=== PATIENT | female | born 1965 | race Caucasian/White ===

== ENCOUNTER → 2016-03-25 13:56 | Outpatient (CLI) | payer MEDICAID ==
[2015-07-18 10:54] VITALS: BMI 37.6
[~2016-03-25 13:56] MED LIST: ADDERALL 10 MG10 MG; ADDERALL 10 MG10 MG PO; ARMOUR THYROID30 MG PO; CELEBREX200 MG PO; CYCLOBENZAPRINE10 MG PO; CYMBALTA60 MG PO; FISH OIL 1,0001 CA1 PO; GLUCOPHAGE1000 MG PO; HYDROCHLOROTH12.5 M1 PO; HYDROCODONE-APA1 TAB PO; K-DUR20 MEQ PO; LIPITOR20 MG PO; LIPITOR40 MG PO; LISINOPRIL5 MG PO; LOVAZA1 G PO; MEVACOR40 MG PO; MOBIC7.5 MG PO; NEUPRO; NEUPRO1 EACH TOPICAL; NEURONTIN 300300 MG PO; NORCO 10/325 TA1 TA1 PO; NORCO 7.5/325 T1 TA1 PO; PERCOCET 10/3251 TA1 PO; POTASSIUM CHLO20 MEQ PO; PRINIVIL10 MG PO; PROMETRIUM200 MG PO; PROZAC40 MG PO; ULTRAM50 MG PO; VICTOZA0.6 MG/0.1; VICTOZA0.6 MG/0.1 SQ; VITAMIN D3400 UNI1 PO; VITAMIN E100 UNIT PO; VYVANSE40 MG PO; XANAX0.5 MG PO; ZESTRIL10 MG PO
== END | disposition home or self-care (01) ==
LOC: D.MRI 13:56
DX: M25.561 Pain in right knee (principal)

== ENCOUNTER → 2016-05-26 09:07 | Outpatient (CLI) | payer MEDICAID ==
[2015-07-18 10:54] VITALS: BMI 37.6
[~2016-05-26 09:07] MED LIST changes: -LIPITOR20 MG PO; -VYVANSE40 MG PO
== END | disposition home or self-care (01) ==
LOC: D.MRI 05-20 16:00
DX: S43.432A Superior glenoid labrum lesion of left shoulder, initial encounter (principal); X58.XXXA Exposure to other specified factors, initial encounter; Y93.89 Activity, other specified; Y92.89 Other specified places as the place of occurrence of the external cause

== ENCOUNTER 2016-06-11 05:27 | Day surgery (SDC) | payer MEDICAID ==
[2016-06-10 08:56] LABS: HEMATOCRIT 41.3 % (36.0-48.0); HEMOGLOBIN 13.8 g/dL (12-16); MCH 29.2 pg (26.0-34.0); MCHC 33.4 g/dL (31.0-37.0); MCV 87.3 fL (80.0-100.0); MEAN PLATELET VOLUME 9.4 fL (7.4-10.4); RBC 4.73 10x6/uL (4.00-5.40); RDW 12.8 % (11.5-14.5); WBC 7.1 10x3/uL (4.8-10.8)
[2016-06-10 09:04] LABS: ANION GAP 13.6 mmol/L (8-16); CALCIUM 9.6 mg/dL (8.5-10.1); CARBON DIOXIDE 26.5 mmol/L (21.0-32.0); CREATININE - SERUM 1.1 mg/dL (0.6-1.3); POTASSIUM - SERUM 4.1 mmol/L (3.5-5.1)
[~2016-06-11 05:27] MED LIST changes: +LIPITOR20 MG PO; +VYVANSE40 MG PO
[2016-06-11 07:36] LABS: HCG URINE NEGATIVE (NEGATIVE)
[2016-06-11] MEDS ORDERED: PERCOCET 10/3251 TA1 PO (10:09)
== END 2016-06-11 12:20 | disposition home or self-care (01) ==
LOC: D.OPS 05:27
PROVIDERS: Anesthesiology; Orthopaedic Surgery
DX: M75.122 Complete rotator cuff tear or rupture of left shoulder, not specified as traumatic (principal); M22.2X1 Patellofemoral disorders, right knee; M22.2X2 Patellofemoral disorders, left knee; M25.561 Pain in right knee; M25.562 Pain in left knee; S43.432A Superior glenoid labrum lesion of left shoulder, initial encounter; I10 Essential (primary) hypertension; Z01.812 Encounter for preprocedural laboratory examination

== ENCOUNTER → 2016-07-02 13:04 | Outpatient (CLI) | payer MEDICAID ==
[2016-06-11 07:38] VITALS: BMI 35.3
== END | disposition home or self-care (01) ==
LOC: D.MRI 13:04
DX: M25.511 Pain in right shoulder (principal)

== ENCOUNTER → 2016-09-07 08:35 | Outpatient (CLI) | payer MEDICAID ==
[2016-06-11 07:38] VITALS: BMI 35.3
== END | disposition home or self-care (01) ==
LOC: D.MRI 08:35
DX: M54.12 Radiculopathy, cervical region (principal)

== ENCOUNTER → 2018-05-31 09:03 | Outpatient (CLI) | payer OTHER, MEDICAID ==
[~2018-05-31 09:03] MED LIST changes: +ALBUTEROL SULF8.5 GM INH; +DILAUDID4 MG PO; +OMEGA-3100 MG PO; +PROZAC20 MG PO; +VITAMIN D10000 UNI1 PO
== END | disposition home or self-care (01) ==
LOC: D.RAD 09:03
DX: S43.492A Other sprain of left shoulder joint, initial encounter (principal)

== ENCOUNTER 2018-06-11 17:09 | Emergency (ER) | payer OTHER, MEDICAID ==
[~2018-06-11 17:09] MED LIST changes: -ALBUTEROL SULF8.5 GM INH; -DILAUDID4 MG PO; -OMEGA-3100 MG PO; -PROZAC20 MG PO; -VITAMIN D10000 UNI1 PO
[2018-06-11 17:12] VITALS: BMI 38.0
[2018-06-11] MEDS ORDERED: LIPITOR20 MG PO (17:15)
[2018-06-11] MEDS ORDERED: ALBUTEROL SULF8.5 GM INH (17:16)
[2018-06-11 18:02] LABS: APTT 28.8 SECONDS (22.8-39.4); INR 1.24 (0.85-1.17)
[2018-06-11 18:03] LABS: BASOPHILS 0.4 % (0-2); EOSINOPHILS 0 % (0-7); HEMATOCRIT 39.3 % (36.0-48.0); HEMOGLOBIN 13.7 g/dL (12-16); IMMATURE GRANULOCYTES 0.3 % (0-5); LYMPHOCYTES 11.1 % (15-50); MCH 29.3 pg (26.0-34.0); MCHC 34.9 g/dL (31.0-37.0); MEAN PLATELET VOLUME 9.6 fL (7.4-10.4); MONOCYTES 6.7 % (2-11); NEUTROPHILS 81.5 % (40-80); RBC 4.68 10x6/uL (4.00-5.40); WBC 11.1 10x3/uL (4.8-10.8)
[2018-06-11 18:08] LABS: PLATELET COUNT 204 10x3/uL (130-400)
[2018-06-11 18:26] LABS: ALBUMIN 3.2 g/dL (3.4-5.0); ALKALINE PHOSPHATASE 64 U/L (46-116); ALT (SGPT) 91 U/L (10-68); CALC OSMOLALITY 274 mosm/kg (275-300); CARBON DIOXIDE 20.9 mmol/L (21.0-32.0); CHLORIDE - SERUM 100 mmol/L (98-107); CREATININE - SERUM 1.3 mg/dL (0.6-1.3); GLUCOSE 119 mg/dL (74-106); POTASSIUM - SERUM 3.1 mmol/L (3.5-5.1); PROTEIN - SERUM 7.2 g/dL (6.4-8.2); SODIUM 136 mmol/L (136-145); UREA NITROGEN 18 mg/dL (7-18); eGFR NON AFRICAN AMERICAN 45 mL/min (90-120)
[2018-06-11 18:33] LABS: CKMB 0.2 U/L (0.0-3.6); CREATINE KINASE 108 UL (21-215); TROPONIN-I < 0.017 ng/mL (0.000-0.060)
[2018-06-11 18:39] LABS: APPEARANCE CLEAR (CLEAR); BILIRUBIN NEGATIVE (NEGATIVE); COLOR YELLOW (YELLOW); GLUCOSE NEGATIVE (NEGATIVE); KETONE NEGATIVE (NEGATIVE); NITRITE NEGATIVE (NEGATIVE); PROTEIN TRACE mg/dL (NEGATIVE); RED CELLS - URINE NONE SEEN /hpf (0-5); UROBILINOGEN NORMAL (NORMAL); WHITE CELLS - URINE OCC /hpf (0-5)
[2018-06-11 20:18] VITALS: BP 120/52
== END 2018-06-11 20:18 | disposition home or self-care (01) ==
LOC: D.ER 17:09
PROVIDERS: Family Medicine
DX: R50.9 Fever, unspecified (principal); D72.829 Elevated white blood cell count, unspecified

== ENCOUNTER → 2018-06-21 16:56 | Outpatient (CLI) | payer OTHER, MEDICAID ==
[2018-06-11 17:12] VITALS: BMI 38.0
[~2018-06-21 16:56] MED LIST changes: +ALBUTEROL SULF8.5 GM INH
== END | disposition home or self-care (01) ==
LOC: D.LABREF 16:56
PROVIDERS: ATTEND Orthopaedic Surgery
DX: M19.012 Primary osteoarthritis, left shoulder (principal); Z11.8 Encounter for screening for other infectious and parasitic diseases

== ENCOUNTER 2018-07-15 15:11 | Inpatient (IN) | payer OTHER, MEDICAID ==
[~2018-07-15] VITALS: Ht 165.1 cm; Wt 100.7 kg
[2018-07-21] MEDS ORDERED: OMEGA-3100 MG PO (10:39)
[2018-07-21] MEDS ORDERED: PROZAC20 MG PO (10:39)
[2018-07-21] MEDS ORDERED: VITAMIN D10000 UNI1 PO (10:40)
[2018-07-21 11:41] LABS: BASOPHILS 0.9 % (0-2); HEMATOCRIT 42.7 % (36.0-48.0); HEMOGLOBIN 14.6 g/dL (12-16); IMMATURE GRANULOCYTES 0.1 % (0-5); LYMPHOCYTES 41.6 % (15-50); MCH 29.4 pg (26.0-34.0); MCHC 34.2 g/dL (31.0-37.0); MCV 85.9 fL (80.0-100.0); MEAN PLATELET VOLUME 9.3 fL (7.4-10.4); MONOCYTES 7.6 % (2-11); NEUTROPHILS 48.8 % (40-80); RBC 4.97 10x6/uL (4.00-5.40); WBC 9.1 10x3/uL (4.8-10.8)
[2018-07-21 11:43] LABS: PLATELET COUNT 340 10x3/uL (130-400)
[2018-07-21 11:53] LABS: ANION GAP 13.6 mmol/L (8-16); APPEARANCE CLEAR (CLEAR); BILIRUBIN NEGATIVE (NEGATIVE); CALCIUM 9.7 mg/dL (8.5-10.1); CARBON DIOXIDE 26.2 mmol/L (21.0-32.0); COLOR YELLOW (YELLOW); CREATININE - SERUM 0.9 mg/dL (0.6-1.3); GLUCOSE NEGATIVE (NEGATIVE); KETONE NEGATIVE (NEGATIVE); NITRITE NEGATIVE (NEGATIVE); POTASSIUM - SERUM 3.8 mmol/L (3.5-5.1); PROTEIN NEGATIVE (NEGATIVE); UROBILINOGEN NORMAL (NORMAL)
[2018-07-21 11:54] LABS: APTT 28.2 SECONDS (22.8-39.4); INR 1.04 (0.85-1.17); PROTIME 13.1 SECONDS (11.6-15.0)
[2018-07-25] VITALS (10 sets, daily range): BP systolic 105–132; BP diastolic 59–77; Ht 165.1 cm; Wt 100.7 kg
--- NOTE | 2018-07-25 16:21 | NUR ---
PATIENT RESTING. NO NEEDS AT THIS TIME. ADVISED HER TO LET ME KNOW WHEN SHE STARTS HURTING SO WE CAN STAY AHEAD OF THE PAIN. CL AND PHONE IN REACH. DENIES ANY NEEDS AT THIS TIME. ADRIANNE
[2018-07-26] VITALS: BP 117/71
--- NOTE | 2018-07-26 03:41 | NUR ---
I have reviewed this patient and I concur with the Shift Assessment completed by the Licensed Practical Nurse today this shift.
[2018-07-26 04:00] VITALS: BP 116/68
--- NOTE | 2018-07-26 04:19 | NUR ---
PT RESTING IN BED. EYES CLOSED. NO SIGNS OF DISTRESS. BREATHING EVEN AND UNLABORED. CALL LIGHT IN REACH. BED LOWERED AND LOCKED. WILL CONTINUE PLAN OF CARE.
--- NOTE | 2018-07-26 07:41 | NUR ---
PT ALERT X 4. BREATH SOUNDS CLEAR BILAT. DRESSING TO LEFT SHOULDER CDI, SLING IN PLACE. PT REPORTING PAIN OF 7/10, UNRELIEVED BY ORAL PAIN MEDICATION, SOCIAL MEDIA SENIOR ASSOCIATE INITIATED PER ORDERS, WILL MONITOR. SCD'S IN PLACE. BED LOW, CALL LIGHT IN REACH. NO OTHER NEEDS AT THIS TIME.
[2018-07-26 12:43] VITALS: BP 120/57
--- NOTE | 2018-07-26 14:25 | NUR ---
SPOKE WITH MARTHA ABARCA. SHE INSTRUCTED TO KEEP THE KETTLE FRY COOK OPERATOR ON THE PT FOR THE TIME BEING EVEN THOUGH SHE DC'D THE ORDER. TRYING TO GET HER PAIN UNDER CONTROL.
[2018-07-26 16:29] VITALS: BP 136/74
[2018-07-26 20:00] VITALS: BP 119/68
[2018-07-27 04:00] VITALS: BP 125/68
[2018-07-27] MEDS ORDERED: DILAUDID4 MG PO (08:33)
--- NOTE | 2018-07-27 09:27 | MORECARE ---
CASE MANAGEMENT DISCHARGE SUMMARY PATIENT: NUNO NGUYEN UNIT: [id number] ADM DATE: 07/25/18 AGE: 52 : 63 SEX: F ROOM/BED: D.2240 AUTHOR: PROSPER,DOC PHYSICIAN: REFERRING PHYSICIAN: MADAI ESTRADA MD DATE OF SERVICE: 07/27/18 Discharge Plan Patient Name: NUNO NGUYEN Facility: [facility]:[place] : 1965 Planned Disposition: Home Anticipated Discharge Date: 07/28/18 Discharge Date: Expected LOS: 3 Initial Reviewer: [email or web address] Initial Review Date: 07/27/2018 Generated: 07/27/18 10:26 am Comments DCP- Discharge Planning Updated by [email or web address]: Brea Chao on 07/27/18 8:[address] Patient Name: NUNO NGUYEN Admission Status: Elective Accout number: [id number] Admission Date: 07-25-2018 : 1965 Admission Diagnosis: Attending: MADAI ESTRADA Current LOS: 2 Anticipated DC Date: 07-28-2018 Planned Disposition: Home Primary Insurance: Reading Room Discharge Planning Comments: CM met with patient to complete initial dc planning assessment. CM educated patient on the CM role and verbal consent given by patient to complete assessment. Patient lives at home with her boyfriend. At discharge patient plans to return and feels this is a safe discharge. CM discussed availability of home health, rehab services, and medical equipment. Patient denied known discharge needs at this time. States her aunt that lives next door (Wilson Camejo) will be picking her up at discharge. No needs identified. CM will continue to follow and will assist as needed with dc plans/needs. Rectification Printer: Brea Chao DCPIA - Discharge Planning Initial Assessment Updated by [email or web address]: Brea Chao on 07/27/18 9:23 am * Is the patient Alert and Oriented? Yes * How many steps to enter\\exit or inside your home? 4/0 * PCP Dr. Santiago * Pharmacy [facility] * Preadmission Environment Home with Family * ADLs Independent * Equipment Bedside Commode Cane Walker * Other Equipment Sling is on * List name and contact numbers for known caregivers / representatives who currently or will assist patient after discharge: Krystal Mccormack - "boyfriend" - [phone] * Verbal permission to speak to the caregivers and representatives has been obtained from the patient. Yes * Community resources currently utilized None * Additional services required to return to the preadmission environment? No * Can the patient safely return to the preadmission environment? Yes * Has this patient been hospitalized within the prior 30 days at any hospital? No Patient Name: NUNO NGUYEN Page [id number] at 0927 All edits/amendments must be made on the electronic document DICTATION DATE: 07/27/18925 CHIPPER OPERATOR: AIDA 07/27/18925 RPT#: [id number] DC DATE: STATUS: ADM IN [facility] [address] [place] [address] END OF REPORT
[2018-07-27 09:44] VITALS: BP 134/62
--- NOTE | 2018-07-27 09:46 | NUR ---
PT RESTING IN BED C/O PAIN TO LEFT SHOULDER RATING PAIN 10/10 AT THIS TIME. DILAUDID PO ADMINISTERED PER MD ORDERS. DRESSING TO LEFT SHOULDER C/D/I, SLING IN PLACE. SALINE LOC TO RIGHT HAND SITE WITHOUT REDNESS OR EDEMA. EASILY FLUSHES. PT DENIES FURTHER NEEDS. CL WITHIN REACH. ENCOURAGED TO CALL WITH NEEDS. CONTINUE POC
--- NOTE | 2018-07-27 11:29 | NUR ---
D/C INSTRUCTIONS PROVIDED FOR D/C. DISCUSSED PENDULUM EXERCISES WITH PT ORDERED PER MD. PRESCRIPTIONS PROVIDED. EDUCATED REGARDING MONITORING FOR INFECTION. DISCUSSED DRESSING CHANGE IN 7 DAYS. DRESSING TO LEFT SHOULDER CHANGED AT THIS TIME. MEPILEX AG APPLIED PER ORDERS,EDGES WELL APPROXIMATED, SITE WITHOUT REDNESS OR EDEMA. DENIES QUESTIONS AT THIS TIME.
[2018-07-27 12:00] VITALS: BP 117/58
--- NOTE | 2018-07-27 14:55 | NUR ---
PT SALINE LOC D/C'D FROM RIGHT HAND CATH INTACT. PT TAKEN OUT VIA W/C TO PVT VEHICLE WITH PERSONAL BELONGINGS.
--- NOTE | 2018-07-28 11:35 | OP ---
PATIENT NAME: NUNO NGUYEN MEDICAL RECORD: [id number] :63 LOCATION:[id number].MS [id number] ADMISSION DATE:07/25/18 SURGEON: MADAI ESTRADA MD DATE OF OPERATION: 07/25/2018 PREOPERATIVE DIAGNOSIS: Degenerative arthritis of the left shoulder. POSTOPERATIVE DIAGNOSIS: Degenerative arthritis of the left shoulder. PROCEDURE: Left total shoulder arthroplasty. SURGEON: Madai Estrada MD STENCILER: AGUSTIN Harrell INTRAOPERATIVE COMPLICATIONS: None. SUMMARY OF PATHOLOGIC FINDINGS: Degenerative changes at both glenoid and humeral head, consistent with the patient's previous radiographs as well as arthroscopy. IMPLANTS USED: Arthrex [place] [employer] stem size #6, Arthrex [employer] VaultLock size small, cemented; Arthrex Univers II humeral head 48/21. OPERATIVE SUMMARY IN DETAIL: After obtaining the appropriate preoperative orthopedic surgery consent as well as anesthetic consultation, evaluation, and clearance, the patient was brought to the operating room and placed on the operating table in the supine position. After adequate general laryngeal mask was administered, the patient was placed in beachchair position. All pressure points were well padded. She was held firmly to the operating table using the vacuum pack suction system. Left upper extremity and shoulder were then prepped and draped in routine sterile fashion. At this point, time-out was done to be sure of the appropriate position, antibiotics, etc. After all were in agreement, deltopectoral incision was taken down. Cephalic vein was identified and protected. Deltoid was retracted laterally using the brown retractor. Clavipectoral fascia was incised. The conjoined tendon was gently retracted medially. Subscapularis was taken down in a peel method. The patient had previously had a biceps tenodesis. The peel was then taken back. The shoulder was then dislocated into the incision. Proximal humeral cut was made using the proximal humeral cutting guide. Serial and sequential reaming and broaching were done for a size #6 trial. It was put into place with the cut protection device in place. Attention was then turned to the glenoid. Circumferential labrectomy was followed by central pin placement using the guide followed by reaming for a size small VaultLock glenoid. Final preparations were made. The glenoid was irrigated and dried. Once it was irrigated and dried, the glenoid was cemented into place. All excess cement was removed. It was held in place until the cement was dry. At this point, humeral head was redislocated and the trial was taken down. The final stem was put into place. Both inferior and superior screws were tightened distally and the 48/21 humeral head was tamped into place with Hidalgo taper. Shoulder was taken through range of motion with appropriate posterior subluxation as well as good range of motion. At this point, the subscapularis was reapproximated back to the lesser tuberosity in transosseous fashion using #2 Ethibond. Final closure was done by Rafael Mathew to include #1 Vicryl, 2-0 Vicryl, and skin pablo. Sterile dressings were applied. The patient was awakened and taken to the recovery room in stable OPERATIVE REPORT [id number] NUNO NGUYEN condition. All final needle and sponge counts were correct. TRANSINT:[id number] Voice Confirmation ID: [id number] DOCUMENT ID: [id number] NATALIE YEAGER, MADAI DEJESUS at 1135 CC: [id number] DICTATION DATE: 07/27/18 1356 PORCELAIN FINISH SPRAYER: 07/27/18 1725 DIS IN 07/27/18 [facility] [address] [place] [address]
== END 2018-07-27 14:56 | disposition home or self-care (01) | DRG 483 ==
LOC: D.SDCHOLD 07-25 06:57 → D.MS 07-25 12:12 → D.SDCHOLD 07-25 12:30 → D.MS 07-27 14:56
PROVIDERS: ADMIT Orthopaedic Surgery; ATTEND Orthopaedic Surgery
PROC: 0RRK0JZ Replacement of Left Shoulder Joint with Synthetic Substitute, Open Approach (ICD-10-PCS; principal; 2018-07-25 08:45)
DX: M19.012 Primary osteoarthritis, left shoulder (principal); G25.81 Restless legs syndrome; I10 Essential (primary) hypertension; R06.81 Apnea, not elsewhere classified; Z87.891 Personal history of nicotine dependence; G89.18 Other acute postprocedural pain

== ENCOUNTER → 2019-02-06 08:39 | Outpatient (CLI) | payer OTHER, MEDICAID ==
[~2019-02-06 08:39] MED LIST changes: +DILAUDID4 MG PO; +OMEGA-3100 MG PO; +PROZAC20 MG PO; +VITAMIN D10000 UNI1 PO
== END | disposition home or self-care (01) ==
LOC: D.RT 08:39
PROVIDERS: ATTEND Family Medicine
DX: R06.00 Dyspnea, unspecified (principal)

== ENCOUNTER → 2019-03-15 08:08 | Outpatient (CLI) | payer OTHER, MEDICAID | END | disposition home or self-care (01) | LOC: D.RT 08:08 | PROVIDERS: ATTEND Internal Medicine Pulmonary Disease | DX: R06.00 Dyspnea, unspecified (principal) ==

== ENCOUNTER → 2019-06-07 08:31 | Outpatient (CLI) | payer OTHER, MEDICAID | END | disposition home or self-care (01) | LOC: D.HCCARDIO 08:31 | PROVIDERS: ATTEND Internal Medicine Cardiovascular Disease | DX: I20.9 Angina pectoris, unspecified (principal) ==

== ENCOUNTER 2019-06-26 07:00 | Outpatient (CLI) | payer OTHER, MEDICAID ==
[~2019-06-26] VITALS: Ht 165.1 cm; Wt 111.4 kg
--- NOTE | ~2019-06-26 | HEMODYNAMI ---
PATIENT:NUNO NGUYEN MEDICAL RECORD: [id number] : 63 LOCATION:[facility]IE ADMISSION DATE: 06/26/19 Generatedon:06/26/20199:46 Patient name: NUNO NGUYEN Patient #: [id number] SSN: [id number] : 1965 Date of study: 06/26/2019 Page: Of Hemodynamic Procedure Report Patient Data Patient Demographics Procedure consent was obtained First Name: NUNO Gender: Female Last Name: WENDY : 1965 [facility] Initial: JASON Age: 53 year(s) Patient #: [id number] Race: SSN: [id number] Additional ID: [id number] Contact details Address: [address] [place] [address] State: [place] City: [place] Zip code: [address] Past Medical History Allergies: No known allergies Admission Admission Data Admission Date: 06/26/2019 Admission Time: 7:00 Arrival Date: 06/26/2019 Arrival Time: 0:00 Insurance Payor: Private health insurance [facility] #: [id number] Height (in.): 64.96 BSA: 2.15 (m2) Height (cm.): 165 BMI: 40.77 (kg/m2) Weight (lbs.): 244.71 Weight (kg.): 111 Lab Results Lab Result Date: 06/26/2019 Lab Result Time: 0:00 Biochemistry Name Units Result Min Max BUN mg/dl 17 --(---*)-- 7 18 Creatinine mg/dl 0.9 --(-*--)-- 0.6 1.3 eGFR ml/min 69 *-(----)-- 90 120 NONAFRICAN CBC Name Units Result Min Max Hematocrit % 41.5 -*(----)-- 42 54 Hemoglobin g/dl 13.6 --(*---)-- 13.5 17.5 Procedure Procedure Types Cath Procedure Diagnostic Procedure C [facility] w/Coronaries Sedation Charges Moderate Sedation up to 15 minutes Procedure Description Procedure Date Procedure Date: 06/26/2019 Procedure Start Time: 9:34 Procedure End Time: 9:44 Procedure Staff Name Function Paul Carrasco MD Performing Physician Priya Bedoya RT Monitor Adilene Thomas RN Nurse Shakira Escamilla RT Scrub Lula Zelaya RT Principal Systems Architect Indication Angina Procedure Data Cath Procedure Fluoroscopy Diagnostic fluoroscopy Total fluoroscopy Time: 0.9 time: 0.9 min min Diagnostic fluoroscopy Total fluoroscopy dose: 315 dose: 315 mGy mGy Contrast Material Contrast Material Type Amount (ml) Isovue 300 41 Entry Location Entry Primary Successful Side Size Upsize Upsize Entry Closure Succes sful Closure Location (Fr) 1 (Fr) 2 (Fr) Remarks Device Remarks Femoral Right 5 Fr Exoseal artery Estimated blood loss: 5 ml Diagnostic catheters Device Type Used For End Catheter Placement MULTIPACK JL 4.0 5Fr Left Coronary catheter Angiography MULTIPACK 3DRC 5Fr Right Coronary catheter Angiography MULTIPACK Pigtail 5 Fr LV Angiography catheter Procedure Complications No complications Procedure Medications Medication Administration Route Dosage 0.9% NaCl I.V. 100 ml/hr Oxygen etCO2 Nasal cannula 2 l/min Lidocaine 2% added to field 20 Heparin Flush Bag added to field 2 bags (1000units/500ml NS) Versed I.V. 2 mg Fentanyl I.V. 50 mcg Versed I.V. 1 mg Fentanyl I.V. 25 mcg Hemodynamics Rest BSA: 2.15 (m2) HGB: 13.6 (g/dl) O2 Consumption: Estimated: 202.51 (ml/min) O2 Co nsumption indexed: Estimated:94.19 (ml/min/m) Heart Rate: 64 (bpm) Pressure Samples Time Site Value (mmHg) Purpose Heart Use Rate(bpm) 9:40 LV 131/19,21 Snapshot 62 9:40 AO 135/73(103) Pullback 64 9:40 LV 130/14,17 Pullback 64 Gradients Valve Time Site 1 Site 2 Mean SEP/DFP Peak To Heart Use (mmHg) (sec/min) Peak Rate (mmHg) (bpm) Aortic 9:40 LV AO 0 10 0 64 130/14,17 135/73(103) Calculations Valve P-P Mean Valve Index Valve Source Name Gradient Area Flow (cm2) Aortic 0 0 0 0 Snapshots Pre Cath Intra NCS Post Cath Vital Signs Time Heart Resp SPO2 etCO2 NIBP (mmHg) Rhythm Pain Sedation Rate (ipm) (%) (mmHg) Status Level (bpm) 9:15:42 64 13 97 41 133/79(105) NSR 0 (11) 10(A) , No pain 9:20:02 60 18 96 37.9 123/76(95) NSR 0 (11) 10(A) , No pain 9:24:14 62 16 97 43.2 120/71(95) NSR 0 (11) 10(A) , No pain 9:28:30 59 24 97 40.2 117/68(97) SB 0 (11) 10(A) , No pain 9:32:44 60 27 96 38.6 124/70(93) NSR 0 (11) 10(A) , No pain 9:36:58 60 14 98 40.1 135/76(99) NSR 0 (11) 10(A) , No pain 9:41:55 59 22 99 40.9 128/74(107) SB 0 (11) 10(A) , No pain Medications Time Medication Route Dose Verified Delivered Reason Notes Effe ctiveness by by 9:14:48 0.9% NaCl I.V. 100 Paul Adilene used for ml/hr Luna William procedure RN 9:14:54 Oxygen etCO2 2 Paul Adilene used for Nasal l/min Luna William procedure cannula RN 9:14:59 Lidocaine 2% added 20ml Paul Paul for local to vial [facility] anesthetic field MD YEAGER 9:15:04 Heparin Flush added 2 Paul Paul used for Bag to bags Luna Luna procedure (1000units/500ml field MD YEAGER NS) 9:25:13 Versed I.V. 2 mg Paul Adilene for LunaJacobo Thomas sedation RN 9:25:23 Fentanyl I.V. 50 Paul Adilene for mcg LunaJacobo Thomas sedation MD MUIR 9:31:16 Versed I.V. 1 mg Paul Adielne for LunaJacobo Thomas sedation RN 9:31:27 Fentanyl I.V. 25 Paul Adilene for mcg LunaJacobo Thomas sedation MD MUIRdiving fisher Log Time Note 9:03:03 Informed consent obtained and on chart 9:04:05 Indication : Angina 9:04:12 Lula Zelaya RT(R) sent for patient. Start room use. 9:04:16 Time tracking: Regular hours (M-F 7:00 - 5:00) 9:04:21 Procedure Status Elective Heart Cath (OP). 9:04:29 Plan of Care:Hemodynamics will remain stable., Cardiac rhythm will remain stable., Comfort level will be maintained., Respiratory function will remain adequate., Patient/ family verbilizes understanding of procedure., Procedure tolerated without complication., Recovers from procedure without complications.. 9:06:58 Patient received from Pre/Post Procedure Room to CCL 2 Alert and oriented. Tansferred to table in Supine position. 9:07:01 Warm blankets applied, and anusha hugger turned on for patient comfort. 9:07:02 Correct patient and procedure confirmed by team. 9:07:03 ECG and BP/O2 sat monitors applied to patient. 9:08:12 Patient allergic to No known allergies 9:14:29 Vital chart was started 9:14:40 H&P Date Dictated: 06/26/2019 H&P Addendum completed by physician on day of procedure. (MUST COMPLETE FOR ALL OUTPATIENTS), New H&P dictated by physician.. 9:14:42 Pre-procedure instructions explained to patient. 9:14:42 Pre-op teaching completed and patient verbalized understanding. 9:14:45 Family unavailable. 9:14:48 0.9% NaCl 100 ml/hr I.V. was administered by Adilene Thomas RN; used for procedure; Verbal order read back and verified. 9:14:48 Patient NPO since Midnight. 9:14:51 Baseline sample Acquired. 9:14:54 Oxygen 2 l/min etCO2 Nasal cannula was administered by Adilene Thomas RN; used for procedure; Verbal order read back and verified. 9:14:57 Rhythm: sinus rhythm 9:14:59 Lidocaine 2% 20ml vial added to field was administered by Paul Carrasco MD; for local anesthetic; Verbal order read back and verified. 9:15:00 Full Disclosure recording started 9:15:01 9:15:04 Heparin Flush Bag (1000units/500ml NS) 2 bags added to field was administered by Paul Carrasco MD; used for procedure; Verbal order read back and verified. 9:15:05 Is the patient allergic to Iodine/contrast media? No. 9:15:14 Was the patient premedicated? Yes 9:15:23 Is patient on blood thinner?No 9:15:46 Patient diabetic? No. 9:16:04 Patient not . Patient has had tubal. 9:16:13 ----Pre-sedation anethsthesia assessment.---- 9:16:20 Previous problem with sedation/anesthesia? No ? 9:16:22 Snore? Yes 9:16:25 Sleep apnea? Yes 9:16:30 Deviated septum? Unknown 9:16:33 Opens mouth fully? Yes 9:16:36 Sticks out tongue? Yes 9:16:55 Airway obstruction? Yes sleep apnea/sleep with cpap 9:17:00 Dentures? No ? 9:17:08 Pre procedure: right dorsailis pedis pulse 1+ Palpable, but thready & weak; easily obliterated 9:17:19 IV patent on arrival in left forearm with 0.9% NaCl at O. 9:19:13 Lab Result : Creatinine 0.9 mg/dl 9:19:13 Lab Result : BUN 17 mg/dl 9:19:13 Lab Result : Hematocrit 41.5 % 9:19:13 Lab Result : Hemoglobin 13.6 g/dl 9:19:13 Lab Result : eGFR NONAFRICAN 69 ml/min 9:19:21 Lab results completed and on chart. 9:19:51 Stress Test: yes; abnormal apex 9:19:57 Right groin area was prepped with chlora-prep and draped in sterile fashion 9:19:59 Alarms reviewed by R. N. 9:20:00 Sharps counted by scrub and verified by R.N. 9:20:05 Use device set Femoral Dx 9:20:07 ACIST Syringe (72435) opened to sterile field. 9:20:07 Bag Decanter (2002) opened to sterile field. 9:20:08 Medline Cath Pack ([id number]) opened to sterile field. 9:20:09 ACIST Hand Control (82542) opened to sterile field. 9:20:10 ACIST Manifold (03864) opened to sterile field. 9:20:11 DIAGNOSTIC Multipack 5Fr catheter set ([id number]) opened to sterile field. 9:20:13 Tegaderm 4 x 4 (1626W) opened to sterile field. 9:20:15 SHEATH 5FR Austin (ITE639) opened to sterile field. 9:20:16 EMERALD Guide Wire (772-446) opened to sterile field. 9:23:36 Risk of Mortality: 0.1 9:23:39 Risk of blood transfusion: 0.4 9:23:46 Risk of KALIN: 0.4 9:24:07 Physician arrived 9:24:08 --------ALL STOP TIME OUT------ 9:24:09 Final Timeout: patient, procedure, and site verified with staff and physician. All members of the team are in agreement. 9:24:12 Right groin site verified by team. 9:24:18 Fire Safety Assessment: A--An alcohol-based skin anteseptic being used preoperatively., C--Open oxygen or nitrous oxide is being used., D--An ESU, laser, or fiber-optic light is being used. 9:24:26 Physical assessment completed. ASA score P 2 - A patient with mild systemic disease as per Paul Carrasco MD. 9:24:34 2) 60-89 Mildly reduced kidney function, and other findings (as for stage 1) point to kidney disease. 9:24:38 Maximum allowable contrast dose (3.7 X eGFR X 0.75)191 ml. 9:24:45 Sedation plan: IV Moderate Sedation Medication:Versed, Fentanyl 9:25:13 Versed 2 mg I.V. was administered by Adilene Thomas RN; for sedation; Verbal order read back and verified. 9:25:23 Fentanyl 50 mcg I.V. was administered by Adilene Thomas RN; for sedation; Verbal order read back and verified. 9:26:30 Arrival Date: 06/26/2019 12:00:00 AM 9:26:37 Insurance Payor : Private health insurance 9:26:58 Patient Height : 64.96 inches 9:27:01 Patient Weight : 244.71 lbs 9:29:45 PRIYA SPOKE TO AUNT FOR START OF PROCEDURE. 9:30:04 Zero performed for pressure channel P1 9:31:16 Versed 1 mg I.V. was administered by Adilene Thomas RN; for sedation; Verbal order read back and verified. 9:31:27 Fentanyl 25 mcg I.V. was administered by Adilene Thomas RN; for sedation; Verbal order read back and verified. 9:34:23 Procedure started. 9:34:32 Local anesthetic to right femoral artery with Lidocaine 2% by Paul Carrasco MD.INITIAL ACCESS ONLY 9:35:24 A 5 Fr sheath was inserted into the Right Femoral artery 9:35:44 A MULTIPACK JL 4.0 5Fr catheter was advanced over the wire and used for Left Coronary Angiography. 9:37:03 LCA angiography performed. 9:37:11 Injector settings: Ml/sec: 3, Volume: 6, 9:37:49 Catheter removed. 9:37:58 A MULTIPACK 3DRC 5Fr catheter was advanced over the wire and used for Right Coronary Angiography. 9:38:47 RCA angiography performed. 9:38:56 Injector settings: Ml/sec: 3, Volume: 6, 9:39:14 Catheter removed. 9:39:20 A MULTIPACK Pigtail 5 Fr catheter was advanced over the wire and used for LV Angiography. 9:39:29 Injector settings: Ml/sec: 5, Volume: 15, 9:39:33 LV gram done using LAUGHLIN 9:40:19 EF : 55 % 9:40:28 LV hemodynamics recorded. 9:40:31 Catheter removed. 9:40:34 EXOSEAL 5Fr (EX500) opened to sterile field. 9:40:53 Sheath removed intact; hemostasis achieved with Exoseal to the Right Femoral artery. 9:41:09 Contrast amount:Isovue 300 41ml. 9:41:20 Procedure ended.(Physican Out) 9:41:30 Fluoroscopy time 00.90 minutes. 9:41:38 Fluoroscopy dose: 315 mGy 9:41:38 Flurop Dose total: 315 9:41:49 Dose Area Product 85759 mGy/cm. 9:41:53 Maximum allowable dose exceeded? No. 9:41:55 Sharps counted by scrub and verified by R.N. 9:41:57 Insertion/operative site no bleeding no hematoma. 9:42:02 Post-op/insertion site Right Femoral artery dressed using a 4 x 4 and Tegaderm. 9:42:07 Post right femoral artery:stable 9:42:13 Post-procedure physical assessment completed. ASA score P 2 - A patient with mild systemic disease as per Paul Carrasco MD. 9:42:18 Post procedure rhythm: unchanged. 9:42:22 Estimated blood loss: 5 ml 9:42:23 Post procedure instruction explained to patient.Patient verbalizes understanding. 9:42:24 Patient needs reinforcement of post procedure teaching. 9:43:01 Procedure type changed to Cath procedure, Diagnostic procedure, LHC, LHC w/Coronaries, Sedation Charges, Moderate Sedation up to 15 minutes 9:43:06 Procedure and supply charges have been captured, reviewed, submitted and are correct. 9:43:37 Procedure Complication : No complications 9:43:47 Vital chart was stopped 9:43:49 [facility] Findings: mild to moderate CAD (<70%) 9:43:51 Operative report dictated upon procedure completion. 9:43:51 See physician's report for complete and final results. 9:43:53 Report given to Pre/Post Procedure Room. 9:43:58 Patient transfered to Pre/Post Procedure Room with Stretcher. 9:44:05 Procedure ended. 9:44:05 Full Disclosure recording stopped Device Usage Item Name Manufacture Quantity Catalog Hospital Part Current Minimal L ot# / Number Charge Number Stock Stock Serial# Code ACIST Acist 1 84817 [id number] 291632 916308 20 Syringe Medical (59370) Systems Inc Bag Microtek 1 057383 08169 413092 5 Decanter Medical Inc. () Medline Medline 1 [id number] 878187 31290 554138 5 Cath Pack ([id number]) ACIST Hand Acist 1 76032 547262 595805 665214 5 Control Medical (45279) Systems Inc ACIST Acist 1 76869 547954 399948 527189 5 Manifold Medical (48339) Systems Inc DIAGNOSTIC Cardinal 1 CN4756 005842 85903 108383 30 [facility] ALT Bioscience 5Fr catheter set (NR1836) Tegaderm 4 3M 1 1626W 951346 703582 516597 5 x 4 (1626W) SHEATH 5FR Terumo 1 XNB269 169922 618988 576657 5 Austin (QRA039) EMERALD Cardinal 1 870-086 184379 003476 655910 5 Guide Wire Health (015-899) MULTIPACK Cardinal 1 027672 5 JL 4.0 5Fr Health catheter MULTIPACK Cardinal 1 882158 5 3DRC 5Fr Health catheter MULTIPACK Cardinal 1 650260 5 Pigtail 5 Health Fr catheter EXOSEAL 5Fr Cardinal 1 EX500 074938 442308 574174 10 (EX500) Health Signature Audit [place] Stage Time Signature Unsigned Intra-Procedure 06/26/2019 Priya 9:44:34 AM Aureliano RT(R) (CV); Adilene Thomas RN; Paul Carrasco MD Signatures Performing Physician : Signature : Paul Carrasco MD Date : Time : Monitor : Priya Signature : uAreliano RT Date : Time : Nurse : Adilene Thomas RN Signature : Date : Time : [facility] [address] [place] [address]
[2019-06-26] MEDS ORDERED: NEUPRO1 EACH TOPICAL (07:51)
[2019-06-26] MEDS ORDERED: VASCEPA1 GM PO (07:52)
[2019-06-26] MEDS ORDERED: PROAIR HFA8.5 G1 INH (07:52)
[2019-06-26] MEDS ORDERED: PROZAC20 MG PO (07:52)
[2019-06-26] MEDS ORDERED: VITAMIN E200 UNI1 PO (07:58)
[2019-06-26] MEDS ORDERED: ZINC50 MG PO (08:00)
[2019-06-26] MEDS ORDERED: FOLIC ACID0.8 MG PO (08:00)
[2019-06-26] MEDS ORDERED: VITAMIN A10000 UNIT PO (08:00)
[2019-06-26 08:15] VITALS: BP 128/73; Ht 165.1 cm; Wt 111.4 kg
[2019-06-26 08:20] LABS: HEMATOCRIT 41.5 % (36.0-48.0); HEMOGLOBIN 13.6 g/dL (12-16); MCH 28.4 pg (26.0-34.0); MCHC 32.8 g/dL (31.0-37.0); MCV 86.6 fL (80.0-100.0); MEAN PLATELET VOLUME 9.5 fL (7.4-10.4); PLATELET COUNT 267 10x3/uL (130-400); RBC 4.79 10x6/uL (4.00-5.40); RDW 13.1 % (11.5-14.5); WBC 7.3 10x3/uL (4.8-10.8)
[2019-06-26 08:55] LABS: ANION GAP 13.8 mmol/L (8-16); CARBON DIOXIDE 23.3 mmol/L (21.0-32.0); CHOL - HDL RATIO 7.6 ratio (2.3-4.1); CREATININE - SERUM 0.9 mg/dL (0.6-1.3); LDL-HDL RATIO 4.3 ratio (1.5-3.5); POTASSIUM - SERUM 4.1 mmol/L (3.5-5.1)
--- NOTE | 2019-06-26 09:55 | NUR ---
REC'D TO ROOM 7 VIA STRETCHER FROM SANDFILL OPERATOR. MONITORS EST. PT DROWSY, BUT FOLLOWS COMMANDS. SEE FOLLOW UP MANAGER. ALARMS ON AND C/L IN REACH.
--- NOTE | 2019-06-26 10:10 | NUR ---
R GROIN SITE SOFT, C/D/I, NO S/S BLEEDING OR HEMATOMA B/P 124/75, HR 59. PT RESTING QUIETLY. ALARMS ON AND C/L IN REACH.
--- NOTE | 2019-06-26 10:41 | NUR ---
PT RESTING QUIETLY, VSS. R GROIN SITE SOFT, NO S/S BLEEDING OR HEMATOMA. ALARMS ON AND C/L IN REACH.
--- NOTE | 2019-06-26 10:55 | NUR ---
R GROIN SITE SOFT, NO S/S BLEEDING OR HEMATOMA. R LEG/FOOT WARM WITH PALP PULSES. HOB ELEVATED, PT REFUSED SANDWICH TRAY. DENIES NEEDS. C/L IN REACH.
--- NOTE | 2019-06-26 11:00 | NUR ---
R GROIN SITE SOFT, C/D/I, HOB ELEVATED. SANDWICH TRAY PROVIDED. VSS. C/L IN REACH.
--- NOTE | 2019-06-26 11:15 | NUR ---
R GROIN SITE SOFT, NO S/S BLEEDING OR HEMATOMA. VSS.
--- NOTE | 2019-06-26 11:30 | NUR ---
R GROIN SITE SOFT, C/D/I. PIV D/C'D INTACT, DSG APPLIED. PT ALLOWED UP TO GET DRESSED AND GO TO BR INDEPENDENTLY.
[2019-06-26 11:40] LABS: BASOPHILS 1 % (0-2); EOSINOPHILS 3 % (0-7); LYMPHOCYTES 35 % (15-50); MONOCYTES 6 % (2-11); NEUTROPHILS 54 % (40-80)
[2019-06-26 11:41] LABS: PLATELET ESTIMATE NORMAL; ROULEAUX OCC
--- NOTE | 2019-06-26 11:45 | NUR ---
ALL DISCHARGE INSTRUCTIONS REVIEWED WITH PT - PT VERBALIZES UNDERSTANDING. PT D/C'D VIA WC TO PRIVATE VEHICLE WITH ALL PAPER WORK AND BELONGINGS.
--- NOTE | 2019-06-27 08:26 | OP ---
PATIENT NAME: NUNO NGUYEN MEDICAL RECORD: [id number] :63 LOCATION:D.CAT ADMISSION DATE: SURGEON: YESENIA FREEDMAN MD DATE OF OPERATION: 06/26/2019 PROCEDURES: Left heart catheterization, selective coronary angiography, right femoral artery approach. CATHETERS: A 5-Saudi Arabian sheath, 5/4 left and right Ilda, 5/4 pig. The procedure was well tolerated. The patient was returned to [place], sheath removed. ExoSeal device placed. FINDINGS: Left ventriculography in 30-degree LAUGHLIN view: Normal wall motion and normal systolic function. CORONARY ANATOMY: LEFT MAIN: Left main is free of disease. LAD: Free of disease in the diagonal system. CIRCUMFLEX: Free of disease in the marginal system. RIGHT CORONARY ARTERY: Codominant system, free of disease. IMPRESSION: Normal LV systolic function, normal coronary anatomy. TRANSINT:[id number] Voice Confirmation ID: [id number] DOCUMENT ID: [id number] YESENIA FREEDMAN MD at 0826 CC: [id number] DICTATION DATE: 06/26/19 0956 STATISTICS PROFESSOR: 06/26/19 1054 DEP CLI 06/26/19 [facility] [address] [place] [address]
== END 2019-06-26 11:45 | disposition home or self-care (01) ==
LOC: D.CATH 07:00
PROVIDERS: ATTEND Internal Medicine Interventional Cardiology
DX: I20.9 Angina pectoris, unspecified (principal); I10 Essential (primary) hypertension; E78.5 Hyperlipidemia, unspecified; R94.31 Abnormal electrocardiogram [ECG] [EKG]

== ENCOUNTER 2019-10-16 06:25 | Inpatient (IN) | payer OTHER, MEDICAID ==
[2019-10-13 11:19] LABS: BASOPHILS 0.9 % (0-2); EOSINOPHILS 3.5 % (0-7); HEMATOCRIT 41.9 % (36.0-48.0); HEMOGLOBIN 13.8 g/dL (12-16); IMMATURE GRANULOCYTES 0.1 % (0-5); MCH 29.2 pg (26.0-34.0); MCHC 32.9 g/dL (31.0-37.0); MCV 88.6 fL (80.0-100.0); MEAN PLATELET VOLUME 9.2 fL (7.4-10.4); MONOCYTES 8.5 % (2-11); PLATELET COUNT 250 10x3/uL (130-400); RBC 4.73 10x6/uL (4.00-5.40); RDW 13.4 % (11.5-14.5)
[2019-10-13 11:27] LABS: ANION GAP 11.5 mmol/L (8-16); CALCIUM 9.2 mg/dL (8.5-10.1); CARBON DIOXIDE 27.7 mmol/L (21.0-32.0); POTASSIUM - SERUM 4.2 mmol/L (3.5-5.1)
[2019-10-13 11:33] LABS: UDS - AMPHET NEGATIVE QUAL (NEGATIVE); UDS - BARB NEGATIVE QUAL (NEGATIVE); UDS - BENZO NEGATIVE QUAL (NEGATIVE); UDS - COCAINE NEGATIVE QUAL (NEGATIVE); UDS - OPIATE NEGATIVE QUAL (NEGATIVE); UDS - PCP NEGATIVE QUAL (NEGATIVE); UDS - THC NEGATIVE QUAL (NEGATIVE)
[2019-10-13 12:44] LABS: APTT 30.3 SECONDS (22.8-39.4)
[2019-10-13 12:45] LABS: PROTIME 13.2 SECONDS (11.6-15.0)
[~2019-10-16] VITALS: Ht 165.1 cm; Wt 110.5 kg
[2019-10-16] VITALS (8 sets, daily range): BP systolic 121–154; BP diastolic 60–79; Ht 165.1 cm; Wt 110.5 kg
--- NOTE | ~2019-10-16 | OP ---
PATIENT NAME: NUNO NGUYEN MEDICAL RECORD: [id number] :63 LOCATION:[facility] [id number] ADMISSION DATE:10/16/19 SURGEON: HERBERT SAMANO MD DATE OF OPERATION: 10/16/2019 PREOPERATIVE DIAGNOSES: 1. Chronic pelvic pain. 2. Retention of foreign body. POSTOPERATIVE DIAGNOSES: 1. Chronic pelvic pain. 2. Retention of foreign body. PROCEDURES PERFORMED: 1. Diagnostic laparoscopy. 2. Subtotal hysterectomy. 3. Bilateral salpingo-oophorectomy. 4. Cystoscopy. SURGEON: Herbert Samano MD [employer]ERS AND ACQUISITIONS ATTORNEY: ILSA Arenas. ANESTHESIOLOGIST: Dr. Leiva. ANESTHESIA: General. FINDINGS: Uterus and ovaries are unremarkable. Essure were present bilaterally within the tubes. The bladder at the time of cystoscopy is also unremarkable. SPECIMENS REMOVED: Bilateral tubes and ovaries with Essure devices. Uterus without cervix. SPECIMEN DISPOSITION: All specimens to pathology. ESTIMATED BLOOD LOSS: 150 cc. FLUIDS: 1500 cc of lactated Ringer's. URINE OUTPUT: 250 cc. COMPLICATIONS: None. DRAIN: Candelaria to gravity. INDICATIONS: The patient is a 54-year-old female with persistent pelvic pain. The patient has had no vaginal bleeding. The patient on exam has tender adnexa and uterus. The patient is consented for a total laparoscopic hysterectomy, bilateral salpingo-oophorectomy, cystoscopy and any indicated procedure. DESCRIPTION OF PROCEDURE: After informed consent was assured, the patient was taken to the operating room where anesthetic was obtained without difficulty. [facility] and prepped and draped. A speculum was introduced in the vagina and the cervix visualized. The cervix has had procedures in the past to include a cold knife conization and a very little OPERATIVE REPORT [id number] NUNO NGUYEN cervical tissue remains in the vaginal vault. This tissue was grasped with a single tooth tenaculum and attempts were made to dilate. No dilation was possible and a sponge stick was placed in the vagina. Attention was now directed to the abdomen where an incision was made to accommodate a 5-mm trocar, which was inserted without difficulty. Accessory ports were now placed in the right and left lower quadrants. Through the left hand port, a grasper was inserted and the left ovary and tube was elevated. Using the SolvAxisunderbeat coagulation cutter, the tissue of the infundibulopelvic ligament was now compressed, coagulated, and . The dissection was carried out underneath the tube and ovary across the round ligament and the anterior leaf of the broad ligament was opened. The bladder flap has developed to the midline. The posterior leaf was now dissected free of the vascular bundle, which was compressed, coagulated, and . Attention was now directed to the left side. Left-side was elevated from the right and using a Thunderbeat coagulation cutter from the left, the infundibulopelvic ligament was compressed, coagulated, and . The dissection was carried out underneath the left ovary and tube across the round ligament and the anterior leaf of the broad ligament was opened and the bladder flap now developed. Posterior leaf was opened and the vessels of the left side are now compressed, coagulated, and . Landmarks were difficult to identify in the lower pelvis. Not having a cut present, made it difficult to isolate the top of the vagina and attachment to both remained in the cervix. A decision was made to perform subtotal hysterectomy at this point. Using the Thunderbeat coagulation cutter, the cervix was removed in a reverse cone fashion. Once this had been performed, an incision was made in the midline and 8 cm incision was extended down to the fascia, which was opened in the midline and this opening carried out laterally. Rectus muscles are and the uterus without cervix, both tubes and ovaries with the Essure devices are now removed from the pelvis. The fascia was now closed and reestablishment of pneumoperitoneum reveals adequate hemostasis. The pelvis was irrigated and irrigant removed. The pneumoperitoneum was released as the accessory trocars were removed and now the primary trocars removed. All sites were closed with a subcuticular stitch. The sponge stick was removed from the vagina and a Candelaria catheter, which was started earlier in the procedure was now removed and cystoscopy was performed. Mucosa shows no damage. Both ureteral orifices are intact with good efflux of urine. After discontinuation of the cystoscopy, examination of the vagina revealed some bleeding and vaginal packing was placed. Sponge, lap, and needle counts were correct times 2. TRANSINT:[id number] Voice Confirmation ID: [id number] DOCUMENT ID: [id number] HERBERT SAMANO MD CC: [id number] DICTATION DATE: 10/20/19 1140 HEALTH TECHNICAL WRITER: 10/20/19 1241 DIS IN 10/17/19 [facility] [address] [facility] [place] [address]
[~2019-10-16 06:25] MED LIST changes: +DETROL LA4 MG PO; +FOLIC ACID0.8 MG PO; +PROAIR HFA8.5 G1 INH; +VACEPA PO; +VASCEPA1 GM PO; +VITAMIN A10000 UNIT PO; +VITAMIN E200 UNI1 PO; +WIXELA INH; +ZINC50 MG PO
[2019-10-16 07:28] LABS: HCG URINE NEGATIVE (NEGATIVE)
--- NOTE | 2019-10-16 18:00 | NUR ---
DIETARY SERVES REGULAR SUPPER TRAY. PT DENIES FEELING NAUSEATED, SOB, OR DIFFICULTY BREATHING. ABDOMEN CONTINUES TO PALPATE SOFT. INCISIONS REMAIN C/D/I. ICE PACK REMOVED FROM ABDOMEN. HARO CATH EMPTIED WITH TOTAL OF 800 ML'S URINE EMPTIED, BLUE/GREEN TINT NOTED TO URINE, MOST RECENT URINE IS NOTED TO PLANNER/SCHEDULER YELLOW. PERIPAD CONTINUES TO BE DRY. NEW LR 1000 ML UP AND INFUSING AT 125 ML/HR. EXPLAINED TO PT THAT DR. SAMANO HAS GIVEN VERBAL ORDER TO REMOVE VAGINAL PACKING AT 8 PM TONIGHT. O2 REMOVED, ROOM AIR O2 SAT REMAINS 98-100 %. PT'S MED ADM RECORD REVIEWED WITH PT AND WRITTEN ON HER WHITE BOARD. PT DENIES NEEDS. LARGE ICE WATER SERVED TO PT. SRPU X1, PER PT REQUEST. CALL LIGHT AND PHONE WITHIN REACH.
--- NOTE | 2019-10-16 18:48 | NUR ---
PT BALLISTICS TESTER LIGHT REQUESTING MORE ICE WATER. SAME PROVIDED. PT REQUESTING PAIN MEDICATION. ADV I WILL LET PCN KNOW. NO FURTHER NEEDS AT THIS TIME.
--- NOTE | 2019-10-16 19:10 | NUR ---
RN TO PT BEDSIDE, PT STATING PAIN IS 6-7/10 TO ABDOMINAL INCISION, PT ADMINISTERED PERCOCET 10MG PO AND TORADOL IV PER MD ORDERS AT THIS TIME. INCISION CLEAN, DRY, INTACT. HARO CATHETER IN PLACE 275 IN UROMETER, URINE OUTPUT LIGHT GREEN IN COLOR. SCD'S ON, PT PERFORMED INCENTIVE SPIROMETER AT THIS TIME, 850ML, WEAK EFFORT. PT DENIES ANY OTHER NEEDS AT THIS TIME. BED IN LOWEST POSITION, SIDE RAILS UPX2, CALL LIGHT IN REACH.
--- NOTE | 2019-10-16 20:32 | NUR ---
RN TO PT BEDSIDE TO REMOVE PACKING, PAKING REMOVED WITHOUT RESISTANCE, SERASANGENOUS DISCHARGE NOTED ON PACKING, NO BLEEDING NOR DISCHARGE NOTED AT PERINEUM AFTER REMOVAL, PERIPAD APPLIED TO PERINEUM. HARO CATHETER IN PLACE DRAINING TO GRAVITY AT BEDSIDE.
--- NOTE | 2019-10-16 23:05 | NUR ---
RN TO PT BEDSIDE FOR ROUNDING, PT SLEEPING AT THIS TIME, PT LEFT UNDISTRUBED.
[2019-10-17 00:18] VITALS: BP 105/58
--- NOTE | 2019-10-17 00:18 | NUR ---
RN TO PT BEDSIDE FOR ROUNDING, VSS. PT DENIES ANY NEEDS AT THIS TIME. BED IN LOWEST POSITION, SIDE RAILS UPX2, CALL LIGHT IN REACH.
[2019-10-17 03:48] VITALS: BP 106/55
--- NOTE | 2019-10-17 03:48 | NUR ---
RN TO PT BEDSIDE FOR ROUNDING, VSS. PT STATES PAIN IS 2/10 TO ABDOMEN, NO DRAINING NOTED TO PERINEUM, HARO CATHETER IN PLACE DRAINING TO GRAVITY, UROMETER WITH 550ML OF LIGHT GREEN URINE.
[2019-10-17 07:45] VITALS: BP 122/58
--- NOTE | 2019-10-17 07:45 | NUR ---
AM ASSESSMENT COMPLETED. SEE FLOWSHEET. PT IS NOW SITTING UP IN THE BED TO EAT BREAKFAST, REGULAR DIET. LARGE ICE WATER SERVED, AND A SECOND MILK SERVED AT PT'S REQUEST. SRUP X2, CALL LIGHT AND PHONE WITHIN REACH. PT DENIES ALL OTHER NEEDS AT THIS TIME.
--- NOTE | 2019-10-17 10:10 | NUR ---
ROUNDS MADE. URINE OUTPUT MEASURED. 425CC CLEAR, GREEN FLUID EMPTIED FROM HARO CATHETER. IV CONTINUES TO INFUSE AT 50CC/HR VIA IVP. IV SITE WITHOUT SWELLING, REDNESS OR TENDERNESS. PT. AWAKE, ALERT SITTING UP IN BED WATCHING TELEVISION. REQUESTING PAIN MED.
--- NOTE | 2019-10-17 10:32 | NUR ---
IV TORADOL AND PO PERCOCET GIVEN PER ORDERS. NO OTHER NEEDS OR CONCERNS VOICED AT THIS TIME. SIDE RAILS UP X2.
--- NOTE | 2019-10-17 13:54 | NUR ---
HARO CATHETER D/C'D. 225CC GREEN URINE EMPTIED. IV D/C'D WITH CATHETER INTACT. PRESSURE DRESSING AND BANDAGE APPLIED.
[2019-10-17] MEDS ORDERED: PERCOCET 7.5/321 TAB PO ×2 (15:39→15:45)
[2019-10-17] MEDS ORDERED: MOBIC7.5 MG PO ×3 (15:40→15:45)
--- NOTE | 2019-10-17 16:00 | NUR ---
REVIEWED DISCHARGE INSTRUCTIONS WITH PT. STATES UNDERSTANDING. PRESCRIPTIONS GIVEN. FOLLOW-UP APPOINTMENT GIVEN FOR 10/31/19 @ 10:45.
--- NOTE | 2019-10-17 16:21 | NUR ---
PT DISCHARGED HOME VIA WHEELCHIAR TO PRIVATE VEHICLE WITH FAMILY MEMBER ACCOMPANIED BY THIS NURSE.
--- NOTE | 2019-10-17 16:49 | MORECARE ---
CASE MANAGEMENT DISCHARGE SUMMARY PATIENT: NUNO NGUYEN UNIT: [id number] ADM DATE: 10/16/19 AGE: 54 : 63 SEX: F ROOM/BED: D.1273 AUTHOR: ELISSA CHENG PHYSICIAN: REFERRING PHYSICIAN: SARAH SAMANO MD DATE OF SERVICE: 10/17/19 Discharge Plan Patient Name: NUNO NGUYEN [facility] [facility] 1965 Planned Disposition: Home Anticipated Discharge Date: 10/17/19 Discharge Date: 10/17/2019 Expected LOS: 1 Initial Reviewer: [email or web address] Initial Review Date: 10/16/2019 Generated: 10/17/19 5:48 pm Patient Name: NUNO NGUYEN Page [id number] at 1649 All edits/amendments must be made on the electronic document DICTATION DATE: 10/17/191648 BOX STRAPPER: AIDA 10/17/199 RPT#: [id number] DC DATE:10/17/19 STATUS: DIS IN [facility] [address] [place] [address] END OF REPORT
== END 2019-10-17 16:24 | disposition home or self-care (01) | DRG 743 ==
LOC: D.OPS 06:25 → D.PAN 07:00 → D.OPS 07:00 → D.LD 13:04 → D.OPS 18:24 → D.LD 18:25
PROVIDERS: Anesthesiology; ADMIT Obstetrics & Gynecology; ATTEND Obstetrics & Gynecology
PROC: 0TJB8ZZ Inspection of Bladder, Via Natural or Artificial Opening Endoscopic (ICD-10-PCS; 2019-10-16)
PROC: 0UT2FZZ Resection of Bilateral Ovaries, Via Natural or Artificial Opening With Percutaneous Endoscopic Assistance (ICD-10-PCS; principal; 2019-10-16 08:30)
PROC: 0UT7FZZ Resection of Bilateral Fallopian Tubes, Via Natural or Artificial Opening With Percutaneous Endoscopic Assistance (ICD-10-PCS; 2019-10-16 08:30)
PROC: 0UT94ZZ Resection of Uterus, Percutaneous Endoscopic Approach (ICD-10-PCS; 2019-10-16 08:30)
DX: N94.10 Unspecified dyspareunia (principal); R10.2 Pelvic and perineal pain; E11.9 Type 2 diabetes mellitus without complications; E78.00 Pure hypercholesterolemia, unspecified; I10 Essential (primary) hypertension

== ENCOUNTER → 2020-05-20 11:09 | Outpatient (CLI) | payer OTHER, MEDICAID ==
[~2020-05-20 11:09] MED LIST changes: +DILAUDID2 MG PO; +HYDROCODON-ACE1 EA10 PO; +PERCOCET 7.5/321 TAB PO
== END | disposition home or self-care (01) ==
LOC: D.MRI 11:09
DX: M25.562 Pain in left knee (principal)